=== PATIENT | female | born 1960 | race Caucasian/White ===

== ENCOUNTER 2020-02-02 12:18 | Emergency (ER) | payer MEDICAID ==
[~2020-02-02] VITALS: Ht 162.6 cm; Wt 70.8 kg
[2020-02-02 12:20] VITALS: BP 108/80
[2020-02-02] MEDS ORDERED: IBUPROFEN 600 MG TABLET PO ONE ×2 (12:30→12:38)
--- NOTE | 2020-02-02 13:44 | NUR ---
Social service consult requested by MD for homelessness. Per MD notes, pt is a 59-year-old female with history of homelessness and alcohol abuse presenting to emergency room with right shoulder pain. She states that this pain has been ongoing since a fall and injury over a month ago. The pain is a dull pain radiating down her right arm and worse with movement of her arm. She denies any new injuries. [facility]HR ATTENDANT conducted chart review and consulted with pt's bedside RN Brenton. LEHR ATTENDANT introduced self and purpose of the visit. Pt is alert and oriented x 4. Pt appears disheveled. Pt is cooperative and pleasant. Pt is an alcoholic and drinks daily. Pt declined homeless penitentiary and referrals to alcohol treatment programs. Pt reports, she is going to her mother's house located at [address] [place] [address] in [facility]. Pt was provided with a day pass TAP card. LEHR ATTENDANT offered active listening, supportive counseling and validation of feelings, LEHR ATTENDANT encouraged pt to stop drinking and get into a program. Pt was provided with lunch. Station Helper is available for support as needed.
== END 2020-02-02 14:02 | disposition home or self-care (01) ==
LOC: ER 12:31
DX: M25.511 Pain in right shoulder (principal); I10 Essential (primary) hypertension; Z88.5 Allergy status to narcotic agent; Z59.0 Homelessness